=== PATIENT | female | born 1975 | race Caucasian/White ===

== ENCOUNTER 2017-01-04 07:17 | Emergency (ER) | payer OTHER ==
[~2017-01-04] VITALS: Ht 167.6 cm; Wt 89.8 kg
[2017-01-04 07:25] VITALS: BP 139/92
[2017-01-04] MEDS ORDERED: ORTHO-NOVUM 7-1 EACH PO (07:48)
[2017-01-04] MEDS ORDERED: CYCLOBENZAPRINE10 M1 PO (08:23)
[2017-01-04] MEDS ORDERED: MEDROL4 M2 PO (08:23)
[2017-01-04] MEDS ORDERED: IBUPROFEN800 M1 PO (08:23)
[2017-01-04] MEDS ORDERED: HYDROCODON-ACE1 EAC2 PO (08:23)
--- NOTE | 2017-01-04 08:25 | ED UPPER/LOWER EXTREMITY COMPL ---
History of Present Illness General Chief Complaint: Hip Injury Stated Complaint: RIGHT HIP PAIN Source: patient Exam Limitations: no limitations Vital Signs & Intake/Output Vital Signs & Intake/Output Vital Signs Date Time Temp Pulse Resp B/P Pulse O2 O2 Flow FiO2 Ox Delivery Rate 01/05 828 91 01/04 725 96.7 128 20 139/92 99 Room Air Allergies Coded Allergies: No Known Allergies (01/04/17) Reconcile Medications Cyclobenzaprine HCl 10 MG TABLET 1 TAB PO TID SPASMS Hydrocodone/Acetaminophen (Hydrocodon-Acetaminophen 5-325) 5 MG-325 MG TABLET 1-2 TAB PO Q4-6 PRN PRN PAIN Ibuprofen 800 MG TABLET 1 TAB PO TID pain Methylprednisolone. (Medrol) 4 MG TAB.DS.PK 1 DP PO AD nerve pain 6 on day 1 then reduce by one tablet daily until gone Norethindrone-Ethinyl Estrad (Ortho-Novum 7-7-7-28 Tablet) 7 DAYS X 3 TABLET 1 TAB PO DAILY CONTRO; (Reported) Triage Note: PT TO ED C/O RIGHT HIP PAIN SINCE WEDNESDAY. WORSE LAST NIGHT AND THIS AM. DENIES ANY INJURY. HAS NOT TAKEN ANY OTC MEDS TDOAY, REFUSING MEDS IN TRIAGE. PAIN RADIATES DOWN TO RIGHT KNEE. STANDING IN TRIAGE DUE TO NOT BEING ABLE TO STAND UP EASILY ONCE SITTING. Triage Nurses Notes Reviewed? yes Onset: Abrupt Duration: day(s): (4-5), constant, continues in ED Timing: recent history Severity: moderate, severe Pain/Injury Location: Right: Hip. Method of Injury: unknown No Modifying Factors: none : No Patient currently breastfeeds: No HPI: 5-year-old female comes into emergency room for further evaluation of pain located in the right side of her hips that radiates down to her knee. Pain is located on the lateral aspect. Denies any posterior pain in her gluteus or posterior pain in her leg. Denies any low back pain initially. Patient reports that this morning she had some mild pain in her back which she thinks it's from the way she was sleeping. Denies any urinary bowel dysfunction. Denies any prior history of this type of pain. Patient reports that she has had sciatica before but this feels different. Patient describes it as a numbness tingling burning pain. Denies any other associated symptoms currently. Past History Travel History Traveled to [place] past 21 day No Medical History Any Pertinent Medical History? none Surgical History Surgical History: none Psychosocial History Tobacco Use: Never used ETOH Use: denies use Illicit Drug Use: denies illicit drug use Family History Hx Contributory? No Review of Systems Review of Systems Constitutional: Reports: no symptoms. EENTM: Reports: no symptoms. Respiratory: Reports: no symptoms. Cardiovascular: Reports: no symptoms. Gastrointestinal/Abdominal: Reports: no symptoms. Genitourinary: Reports: no symptoms. Musculoskeletal: Reports: see HPI. Skin: Reports: no symptoms. Neurological/Psychological: Reports: see HPI. Hematologic/Endocrine: Reports: no symptoms. Immunological: Reports: no symptoms. All Other Systems: Reviewed and Negative Physical Exam Physical Exam General Appearance: well developed/nourished, mild distress Head: atraumatic Eyes: Bilateral: normal appearance. Ears, Nose, Throat: normal ENT inspection, hearing grossly normal Neck: normal inspection Cardiovascular/Respiratory: no respiratory distress Back: normal inspection, normal range of motion, no tenderness Hip Right: normal range of motion, soft tissue tenderness, limited range of motion Foot Right: normal inspection, pulses intact, sensation intact, 5 out of 5 strength lower extremities bilaterally Lower Extremity Reflexes: 2+: knee (R), knee (L). Neurologic/Tendon: normal sensation, normal motor functions, normal tendon functions, responds to pain, no evidence tendon injury, no pulse deficit Skin: intact, normal color, warm/dry Lymphatic: no anterior cervical aster Progress Differential Diagnosis: fracture, septic arthritis, sprain, tendon injury, lumbar radiculopathy, sciatica, myalgia paresthetica, muscle strain, Plan of Care: 01/04/2017 9:22:18 AM Sciatica versus muscle strain versus myalgia paresthetica. Patient treated with steroid pack as well as anti-inflammatories and pain control. Referred to orthopedic doctor. Clinically looks well. Patient has no motor weakness or deficits on exam. Clinically looks well. Nontoxic appearing. She declined any IM medication here for pain. Return if any other concerns worsening symptoms. Patient understands and agrees with plan of care. Departure Departure Disposition: HOME OR SELF CARE Condition: Stable Clinical Impression Primary Impression: Meralgia paraesthetica Referrals: SYL VITAL,Mesha FRANKS MD (PCP/Family) Additional Instructions: Take Medrol Dosepak, ibuprofen, proximal, and Vicodin as prescribed. Follow-up with orthopedic doctor provided. Return to emergency room immediately if any other concerns worsening symptoms. Please note that there might be incidental findings in your evaluation that are unrelated to the current emergency department visit. Please notify your primary care doctor about this emergency department visit in order to obtain and review all of the testing performed so that these incidental findings can be monitored as needed. If you had an x-ray performed, please understand that some fractures may not be seen on the initial set of x-rays. If your symptoms persist you might need a repeat set of x-rays to check for such a fracture. If you had a laceration evaluated, please understand that foreign bodies such as glass or wood may not be visible to the naked eye or on plain x-rays. If the wound becomes red, swollen, increasingly more painful or if there is any drainage from the wound, please have it reevaluated by a physician for the possibility of a retained foreign body. Departure Forms: Customer Survey General Discharge Information Prescriptions: Current Visit Scripts Methylprednisolone. (Medrol) 1 DP PO AD #1 DP 6 on day 1 then reduce by one tablet daily until gone Ibuprofen 1 TAB PO TID #30 TAB Cyclobenzaprine HCl 1 TAB PO TID #20 TAB Hydrocodone/Acetaminophen (Hydrocodon-Acetaminophen 5-325) 1-2 TAB PO Q4-6 PRN PRN PAIN #12 TAB
== END 2017-01-04 08:35 ==
LOC: ERH 07:17
DX: G57.11 Meralgia paresthetica, right lower limb (principal)